=== PATIENT | female | born 1985 | race Caucasian/White ===

== ENCOUNTER 2018-01-02 16:34 | Inpatient (IN) | payer BC ==
[~2018-01-02] VITALS: Ht 170.2 cm; Wt 63.6 kg
[2018-01-02] MEDS ORDERED: PREN1TAB60 PO (16:38)
[2018-01-02] MEDS ORDERED: DOXY25TA18 PO (16:38)
[2018-01-02] MEDS ORDERED: LACTATED RINGERS 1,000 ML IV PRN (16:42)
[2018-01-02 17:00] VITALS: BP 139/80
[2018-01-02] MEDS: MAGNESIUM SULF. PMX 20GM/500ML 500 ML IV SCH ×2 (17:24→22:55)
[2018-01-02 17:27] LABS: BASOPHILS # (AUTO) 0.01 x10^3/uL (0-0.1); BASOPHILS % (AUTO) 0 % (0-1); EOSINOPHILS % (AUTO) 0 % (1-7); LYMPHOCYTES # (AUTO) 0.75 x10^3/uL (1-3.4); LYMPHOCYTES % (AUTO) 7 % (22-44); MD NO; MEAN CORPUSCULAR HEMOGLOBIN 30.2 pg (27.0-34.8); MEAN CORPUSCULAR HGB CONC 33.5 g/dL (32.4-35.8); MEAN PLATELET VOLUME 10.6 fL (7.4-10.4); MONOCYTES # (AUTO) 0.05 x10^3/uL (0.2-0.8); MONOCYTES % (AUTO) 0 % (2-9); NEUTROPHILS # (AUTO) 10.61 x10^3/uL (1.8-6.8); NEUTROPHILS % (AUTO) 93 % (42-75); PLATELET COUNT 224 x10^3/uL (130-400); RED BLOOD COUNT 4.47 x10^6/uL (3.82-5.3); RED CELL DISTRIBUTION WIDTH 12.7 % (9.6-15.2)
[2018-01-02] MEDS: AMPICILLIN 1 GM in SODIUM CHLORIDE 0.9% 100 ML IV SCH ×2 (17:31→21:12)
[2018-01-02 17:35] LABS: ANION GAP 14 mmol/L (5-15); CHLORIDE 108 mmol/L (98-107)
[2018-01-02 17:36] LABS: ALBUMIN 2.7 g/dL (3.4-5.0); CALCIUM 8.2 mg/dL (8.5-10.1)
[2018-01-02 17:39] LABS: ALANINE AMINOTRANSFERASE 52 U/L (12-78); ALKALINE PHOSPHATASE 128 U/L (45-117); BILIRUBIN,TOTAL 0.5 mg/dL (0.2-1.0); CREATININE 0.62 mg/dL (0.55-1.02); TOTAL PROTEIN 6.5 g/dL (6.4-8.2)
[2018-01-02 17:45] LABS: MICROSCOPIC AUTO
[2018-01-02] MEDS ORDERED: ONDANSETRON 2MG/ML, 2ML IVPush PRN (18:00)
[2018-01-02] MEDS ORDERED: ACETAMINOPHEN 325 MG TABLET PO PRN (18:00)
[2018-01-02] MEDS ORDERED: FENTANYL PF 100 MCG/2ML IVPush PRN (18:00)
[2018-01-02] MEDS: D5%-LACTATED RINGERS 1,000 ML IV SCH (20:44)
[2018-01-02] MEDS ORDERED: MAGNESIUM SULF. PMX 20GM/500ML 500 ML IV ONE (22:52)
[2018-01-03] MEDS: DOXYLAMINE 25MG TABLET PO PRN ×2 (00:32→21:30)
[2018-01-03] MEDS: AMPICILLIN 1 GM in SODIUM CHLORIDE 0.9% 100 ML IV SCH ×6 (01:01→21:00)
[2018-01-03 08:12] VITALS: BP 108/63
[2018-01-03] MEDS ORDERED: MAGNESIUM SULF. PMX 20GM/500ML 500 ML IV ONE ×2 (09:25→19:40)
[2018-01-03] MEDS: MAGNESIUM SULF. PMX 20GM/500ML 500 ML IV SCH ×2 (09:31→19:45)
[2018-01-03] MEDS: D5%-LACTATED RINGERS 1,000 ML IV SCH (09:34)
[2018-01-03] MEDS ORDERED: BETAMETHASONE 6 MG/ML, 5ML IM SCH (10:40)
[2018-01-03] MEDS ORDERED: BETAMETHASONE 6 MG/ML, 5ML IM ONE (10:58)
[2018-01-03] MEDS ORDERED: DOCUSATE 100 MG CAPSULE ONE (19:55)
[2018-01-03] MEDS ORDERED: PRENATAL VIT/IRON/FA 1 EACH TABLET ONE (19:56)
[2018-01-03] MEDS: PRENATAL VIT/IRON/FA 1 EACH TABLET PO SCH (20:00)
[2018-01-03] MEDS: DOCUSATE 100 MG CAPSULE PO SCH (20:01)
[2018-01-03] MEDS ORDERED: ACETAMINOPHEN 325 MG TABLET ONE (21:08)
[2018-01-04] MEDS: AMPICILLIN 1 GM in SODIUM CHLORIDE 0.9% 100 ML IV SCH ×4 (01:00→12:31)
[2018-01-04] MEDS ORDERED: MAGNESIUM SULF. PMX 20GM/500ML 500 ML IV ONE (04:52)
[2018-01-04] MEDS: MAGNESIUM SULF. PMX 20GM/500ML 500 ML IV SCH (05:14)
[2018-01-04 08:30] VITALS: BP 120/56
[2018-01-04] MEDS ORDERED: PRENATAL VIT/IRON/FA 1 EACH TABLET ONE (09:03)
[2018-01-04] MEDS ORDERED: DOCUSATE 100 MG CAPSULE ONE ×2 (09:03→20:50)
[2018-01-04] MEDS: PRENATAL VIT/IRON/FA 1 EACH TABLET PO SCH (09:07)
[2018-01-04] MEDS: DOCUSATE 100 MG CAPSULE PO SCH ×3 (09:07→22:02)
[2018-01-04 21:00] VITALS: BP 120/60
[2018-01-04] MEDS: DOXYLAMINE 25MG TABLET PO PRN (22:02)
[2018-01-05 08:30] VITALS: BP 119/74
[2018-01-05] MEDS ORDERED: PRENATAL VIT/IRON/FA 1 EACH TABLET ONE (09:24)
[2018-01-05] MEDS ORDERED: DOCUSATE 100 MG CAPSULE ONE ×2 (09:24→20:07)
[2018-01-05] MEDS: DOCUSATE 100 MG CAPSULE PO SCH ×2 (09:28→21:55)
[2018-01-05] MEDS: PRENATAL VIT/IRON/FA 1 EACH TABLET PO SCH (09:28)
[2018-01-05 21:03] VITALS: BP 133/76
[2018-01-06 11:30] VITALS: BP 124/86
[2018-01-06] MEDS: DOCUSATE 100 MG CAPSULE PO SCH (21:00)
[2018-01-06] MEDS ORDERED: DOCUSATE 100 MG CAPSULE ONE (21:41)
[2018-01-06] MEDS: DOXYLAMINE 25MG TABLET PO PRN (21:45)
[2018-01-07] MEDS ORDERED: DOCUSATE 100 MG CAPSULE PO PRN (09:00)
[2018-01-07] MEDS ORDERED: PRENATAL VIT/IRON/FA 1 EACH TABLET HOMEMEDPO SCH (09:00)
[2018-01-07] MEDS ORDERED: SODIUM CHLORIDE FLUSH 3ML SYRINGE IVF SCH (10:00)
== END 2018-01-07 16:58 | disposition home or self-care (01) | DRG 831 ==
LOC: LDOP 16:34 → LDIP 16:41
PROVIDERS: ADMIT Obstetrics & Gynecology Maternal & Fetal Medicine; ATTEND Obstetrics & Gynecology Maternal & Fetal Medicine
PROC: 0T9B70Z Drainage of Bladder with Drainage Device, Via Natural or Artificial Opening (ICD-10-PCS; principal; 2018-01-02)
DX: O40.3XX0 Polyhydramnios, third trimester, not applicable or unspecified (principal); O60.03 Preterm labor without delivery, third trimester; Z3A.34 34 weeks gestation of pregnancy
CPT/HCPCS: 36415; J7121; 76805; 80053; 81001; 83735; 85025; 86850; 86870; 86900; 86922; 86923; 87086; 93970; G0378; J0290; J0702; J3475; J7120

== ENCOUNTER 2018-01-10 00:41 | Outpatient (CLI) | payer BC ==
[~2018-01-10] VITALS: Ht 170.2 cm; Wt 63.6 kg
[~2018-01-10 00:41] MED LIST: DOXY25TA18 PO; PREN1TAB60 PO
[2018-01-10 01:54] LABS: MICROSCOPIC NOT IND
[2018-01-10 01:57] LABS: CULTURE INDICATED? NO
== END 2018-01-10 02:27 | disposition home or self-care (01) ==
LOC: LDOP 00:41
PROVIDERS: ATTEND Obstetrics & Gynecology Maternal & Fetal Medicine
DX: O46.93 Antepartum hemorrhage, unspecified, third trimester (principal); O62.9 Abnormality of forces of labor, unspecified; O26.893 Other specified pregnancy related conditions, third trimester; R10.9 Unspecified abdominal pain; Z3A.35 35 weeks gestation of pregnancy
CPT/HCPCS: 59025; 81003; 87086; 99211; G0463

== ENCOUNTER 2018-01-12 08:02 | Inpatient (IN) | payer BC ==
[~2018-01-12] VITALS: Ht 170.2 cm; Wt 63.6 kg
[2018-01-12] MEDS ORDERED: DEXTROSE 40%, 37.5 GM GEL ONE (08:05)
[2018-01-12] MEDS ORDERED: LIDOCAINE/PF 1%, 30ML ONE (08:17)
[2018-01-12] MEDS ORDERED: IBUPROFEN 600 MG TABLET ONE ×2 (08:26→08:31)
[2018-01-12] MEDS ORDERED: ACETAMINOPHEN 325 MG TABLET PO PRN ×2 (08:30→09:00)
[2018-01-12] MEDS: IBUPROFEN 600 MG TABLET PO PRN ×3 (08:30→20:21)
[2018-01-12] MEDS ORDERED: METHYLERGONOVINE 0.2 MG/ML IM PRN ×2 (08:30→09:00)
[2018-01-12] MEDS ORDERED: MISOPROSTOL 200 MCG TABLET PR PRN (08:30)
[2018-01-12] MEDS ORDERED: CARBOPROST TROMETHAMINE 250 MCG/ML, 1ML IM PRN (08:30)
[2018-01-12] MEDS: OXYTOCIN 30U/ 0.9% NaCL 500ML 500 ML IV SCH ×4 (08:35→18:35)
[2018-01-12] MEDS ORDERED: DOCUSATE 100 MG CAPSULE PO PRN (09:00)
[2018-01-12] MEDS ORDERED: RHOGAM FROM BLOOD BANK 1 NOTE EA IM/IV ONE (09:00)
[2018-01-12] MEDS ORDERED: BISACODYL 10 MG SUPP PR PRN (09:00)
[2018-01-12] MEDS ORDERED: IBUPROFEN 600 MG TABLET PO PRN (09:00)
[2018-01-12] MEDS ORDERED: MEASLES,MUMPS&RUBELLA VACC/PF 0.5 ML SQ PRN (09:00)
[2018-01-12] MEDS ORDERED: CALCIUM CARBONATE 500 MG TAB.CHEW PO PRN (09:00)
[2018-01-12] MEDS ORDERED: OXYcodone/APAP 5/325MG TABLET PO PRN (09:00)
[2018-01-12] MEDS ORDERED: METOCLOPRAMIDE 5 MG/ML, 2ML IV PRN (09:00)
[2018-01-12] MEDS ORDERED: DIPH,PERTUSS(ACELL),TET VAC/PF NC IM-VACC PRN (09:00)
[2018-01-12 10:10] VITALS: BP 116/80
[2018-01-12] MEDS: PRENATAL VIT/IRON/FA 1 EACH TABLET PO SCH (14:32)
[2018-01-12] MEDS: DOCUSATE 100 MG CAPSULE PO PRN (14:33)
[2018-01-12 15:55] VITALS: BP 123/81
[2018-01-12 16:02] LABS: MEAN CORPUSCULAR HEMOGLOBIN 29.6 pg (27.0-34.8); MEAN CORPUSCULAR HGB CONC 33.1 g/dL (32.4-35.8); MEAN CORPUSCULAR VOLUME 89.5 fL (80-100); MEAN PLATELET VOLUME 10.5 fL (7.4-10.4); PLATELET COUNT 186 x10^3/uL (130-400); RED CELL DISTRIBUTION WIDTH 12.8 % (9.6-15.2)
[2018-01-12 17:09] LABS: BASOPHILS # (AUTO) 0.06 x10^3/uL (0-0.1); BASOPHILS % (AUTO) 0 % (0-1); EOSINOPHILS # (AUTO) 0.03 x10^3/uL (0-0.4); EOSINOPHILS % (AUTO) 0 % (1-7); LYMPHOCYTES # (AUTO) 2.22 x10^3/uL (1-3.4); LYMPHOCYTES % (AUTO) 14 % (22-44); MD SCAN; MONOCYTES # (AUTO) 1.46 x10^3/uL (0.2-0.8); MONOCYTES % (AUTO) 9 % (2-9); NEUTROPHILS # (AUTO) 12.45 x10^3/uL (1.8-6.8); NEUTROPHILS % (AUTO) 77 % (42-75)
[2018-01-12 19:50] VITALS: BP 107/70
[2018-01-13 00:45] VITALS: BP 122/80
[2018-01-13] MEDS: OXYTOCIN 30U/ 0.9% NaCL 500ML 500 ML IV SCH ×2 (04:03→04:35)
[2018-01-13 04:50] VITALS: BP 111/73
[2018-01-13] MEDS: IBUPROFEN 600 MG TABLET PO PRN ×3 (05:30→18:11)
[2018-01-13 08:00] VITALS: BP 110/75
[2018-01-13] MEDS: PRENATAL VIT/IRON/FA 1 EACH TABLET PO SCH (09:00)
[2018-01-13] MEDS: DOCUSATE 100 MG CAPSULE PO PRN (11:48)
[2018-01-13 20:00] VITALS: BP 114/82
[2018-01-14] MEDS: IBUPROFEN 600 MG TABLET PO PRN ×2 (00:14→07:32)
[2018-01-14] MEDS: DOCUSATE 100 MG CAPSULE PO PRN (07:32)
[2018-01-14] MEDS: PRENATAL VIT/IRON/FA 1 EACH TABLET PO SCH (07:32)
[2018-01-14 08:00] VITALS: BP 104/65
== END 2018-01-14 13:28 | disposition home or self-care (01) | DRG 807 ==
LOC: LDIP 08:02 → 2NW 10:05
PROVIDERS: ADMIT Obstetrics & Gynecology Maternal & Fetal Medicine; ATTEND Obstetrics & Gynecology Maternal & Fetal Medicine
PROC: 0HQ9XZZ Repair Perineum Skin, External Approach (ICD-10-PCS; principal; 2018-01-12)
PROC: 10E0XZZ Delivery of Products of Conception, External Approach (ICD-10-PCS; 2018-01-12)
DX: O70.0 First degree perineal laceration during delivery (principal); Z37.0 Single live birth; O99.285 Endocrine, nutritional and metabolic diseases complicating the puerperium; E80.6 Other disorders of bilirubin metabolism; Z88.6 Allergy status to analgesic agent; Z88.8 Allergy status to other drugs, medicaments and biological substances
CPT/HCPCS: 36415; 59414; 85025; 90656; 99285; G0378; J2590